=== PATIENT | female | born 1945 | race Caucasian/White ===

== ENCOUNTER → 2017-01-18 | Outpatient (CLI) | payer OTHER | END | disposition home or self-care (01) | LOC: CFH 10:26 | PROVIDERS: ATTEND Internal Medicine Nephrology | DX: I12.9 Hypertensive chronic kidney disease with stage 1 through stage 4 chronic kidney disease, or unspecified chronic kidney disease (principal); N18.3 Chronic kidney disease, stage 3 (moderate); E11.22 Type 2 diabetes mellitus with diabetic chronic kidney disease | CPT/HCPCS: 76770 ==

== ENCOUNTER → 2017-05-27 | Outpatient (CLI) | payer OTHER ==
[~2017-05-27] MED LIST: AMLO5TAB2 PO; ASPI-496 PO; ATEN1TAB3 PO; BENA40TA2 PO; CHOL10003 PO; CIDE500T PO; CYAN100072 PO; INSU100I28 INJ; MAGN250T2 PO; METF10002 PO; MULT1TAB60 PO; OMEG1CAP23 PO; PARO20TA4 PO; PRAV40TA2 PO
[2017-05-27 14:04] LABS: BLOOD UREA NITROGEN 38 mg/dL (7-18)
[2017-05-27 14:05] LABS: ASPARTATE AMINO TRANSFERASE 16 U/L (15-37)
== END | disposition home or self-care (01) ==
LOC: STAR 12:43
PROVIDERS: ATTEND Orthopaedic Surgery
DX: Z01.818 Encounter for other preprocedural examination (principal); S42.292A Other displaced fracture of upper end of left humerus, initial encounter for closed fracture; X58.XXXA Exposure to other specified factors, initial encounter; Y93.89 Activity, other specified; Y92.89 Other specified places as the place of occurrence of the external cause; Y99.8 Other external cause status
CPT/HCPCS: 36415; 80053; 93005

== ENCOUNTER 2017-05-31 09:22 | Day surgery (SDC) | payer OTHER ==
[~2017-05-31] VITALS: Ht 154.9 cm; Wt 65.8 kg
[~2017-05-31 09:22] MED LIST changes: +CLINDAMYCIN 150 MG/ML, 6ML ONE
[2017-05-31] MEDS ORDERED: ACETAMINOPHEN 325 MG TABLET PO PRN (10:00)
[2017-05-31] MEDS ORDERED: METOPROLOL 1 MG/ML, 5ML IV PRN (10:00)
[2017-05-31] MEDS ORDERED: HYDROmorphone 1 MG/ML, 1ML IV PRN (10:00)
[2017-05-31] MEDS ORDERED: OXYcodone 5 MG/5 ML ORAL.SOL UDC PO PRN (10:00)
[2017-05-31] MEDS ORDERED: PROMETHAZINE 25 MG/ML, 1ML IV PRN (10:00)
[2017-05-31] MEDS ORDERED: hydrALAzine 20 MG/ML, 1ML IV PRN (10:00)
[2017-05-31] MEDS ORDERED: LABETALOL 5MG/ML, 20ML IV PRN (10:00)
[2017-05-31] MEDS ORDERED: ALBUTEROL SULFATE 2.5 MG/3 ML NPPB PRN (10:00)
[2017-05-31] MEDS ORDERED: EPHEDRINE 50 MG/ML, 1ML IVPush PRN (10:00)
[2017-05-31] MEDS ORDERED: FENTANYL PF 100 MCG/2ML IV PRN (10:00)
[2017-05-31] MEDS ORDERED: ONDANSETRON 2MG/ML, 2ML IVPush PRN (10:00)
[2017-05-31 10:06] VITALS: BP 158/87
[2017-05-31] MEDS ORDERED: LACTATED RINGERS 1,000 ML IV SCH (10:09)
[2017-05-31] MEDS ORDERED: NEOSTIGMINE 1 MG/ML, 10ML ONE (11:08)
[2017-05-31] MEDS ORDERED: GLYCOPYRROLATE 0.2MG/1ML, 5ML ONE (11:08)
[2017-05-31] MEDS ORDERED: LIDOCAINE 4%, 4 ML SYR/CANN TP ONE (11:08)
[2017-05-31] MEDS ORDERED: [UNRECOGNIZED DRUG - OTHER] PO SCH (11:30)
[2017-05-31] MEDS ORDERED: ATENOLOL PO SCH (11:30)
[2017-05-31] MEDS ORDERED: PROPOFOL 10 MG/ML, 20ML ONE (11:58)
[2017-05-31] MEDS ORDERED: ROCURONIUM 10 MG/ML,10ML ONE ×2 (11:58)
[2017-05-31] MEDS ORDERED: CEFAZOLIN 1,000 MG ONE ×2 (11:58)
[2017-05-31] MEDS ORDERED: ONDANSETRON 2MG/ML, 2ML ONE ×2 (11:59)
[2017-05-31] MEDS ORDERED: METOCLOPRAMIDE 5 MG/ML, 2ML ONE ×2 (11:59)
[2017-05-31] MEDS ORDERED: INSULIN DETEMIR 100 UNITS/ML, PEN SQ-INSULIN SCH (21:00)
[2017-05-31] MEDS ORDERED: TEMPLATE NON-FORMULARY MED. (Metformin HCl 1,000 MG) PO SCH (21:00)
[2017-05-31] MEDS ORDERED: PRAVASTATIN 40 MG TABLET PO SCH (21:00)
[2017-05-31] MEDS ORDERED: AMLODIPINE 5 MG TABLET PO SCH (21:00)
[2017-05-31] MEDS ORDERED: TEMPLATE NON-FORMULARY MED. (Benazepril Hcl** 40 MG) PO SCH (21:00)
[2017-05-31] MEDS ORDERED: CHOLECALCIFEROL 1,000 UNIT TABLET PO SCH (21:00)
[2017-05-31] MEDS ORDERED: PAROXETINE 20 MG TABLET PO SCH (21:00)
[2017-06-01] MEDS ORDERED: ASPIRIN 81 MG TABLET EC PO SCH (09:00)
[2017-06-01] MEDS ORDERED: MULTIVITAMIN 1 TABLET PO SCH (09:00)
[2017-06-01] MEDS ORDERED: AMLODIPINE 5 MG TABLET PO SCH (09:00)
== END 2017-05-31 15:30 ==
LOC: OUT 09:22
PROVIDERS: ATTEND Orthopaedic Surgery
DX: S42.292A Other displaced fracture of upper end of left humerus, initial encounter for closed fracture (principal); E11.9 Type 2 diabetes mellitus without complications; I10 Essential (primary) hypertension; X58.XXXA Exposure to other specified factors, initial encounter; Y93.89 Activity, other specified; Y92.89 Other specified places as the place of occurrence of the external cause; Y99.8 Other external cause status; Z88.0 Allergy status to penicillin; Z88.5 Allergy status to narcotic agent
CPT/HCPCS: 24435; 73020; 76000; 82962; C1713; C1762; J0690; J2405; J2704; J2710; J2765; J7120; J3490

== ENCOUNTER → 2017-11-09 | Outpatient (CLI) | payer OTHER ==
[~2017-11-09] MED LIST changes: -CLINDAMYCIN 150 MG/ML, 6ML ONE
== END | disposition home or self-care (01) ==
LOC: STAR 09:50
PROVIDERS: ATTEND Orthopaedic Surgery
DX: Z01.818 Encounter for other preprocedural examination (principal); M25.511 Pain in right shoulder
CPT/HCPCS: 36415; 80053; 93005

== ENCOUNTER 2020-03-26 05:57 | Day surgery (SDC) | payer MEDICARE ==
[~2020-03-26] VITALS: Ht 152.4 cm; Wt 67.2 kg
[~2020-03-26 05:57] MED LIST changes: +AMLO-150 PO; -AMLO5TAB2 PO; -BENA40TA2 PO; +BENA40TA3 PO; -METF10002 PO; +METF10007 PO; +MULT-449 PO; -MULT1TAB60 PO
[2020-03-26 07:25] VITALS: BP 184/82
[2020-03-26] MEDS ORDERED: SODIUM CHLORIDE 0.9% 1,000 ML IV SCH (07:30)
[2020-03-26 08:02] LABS: INTERNATIONAL NORMALIZED RATIO 0.92 (0.93-1.1); PROTHROMBIN TIME 9.5 Seconds (9.6-11.5)
== END 2020-03-26 08:12 | disposition home or self-care (01) ==
LOC: OUT 05:57
PROVIDERS: ATTEND Internal Medicine Nephrology
DX: N17.9 Acute kidney failure, unspecified (principal); Z53.8 Procedure and treatment not carried out for other reasons; I12.0 Hypertensive chronic kidney disease with stage 5 chronic kidney disease or end stage renal disease; E11.22 Type 2 diabetes mellitus with diabetic chronic kidney disease; N18.4 Chronic kidney disease, stage 4 (severe); E78.00 Pure hypercholesterolemia, unspecified; Z79.899 Other long term (current) drug therapy; Z87.891 Personal history of nicotine dependence; Z88.0 Allergy status to penicillin; Z88.1 Allergy status to other antibiotic agents; Z79.82 Long term (current) use of aspirin; Z79.4 Long term (current) use of insulin; Z72.89 Other problems related to lifestyle; Z82.49 Family history of ischemic heart disease and other diseases of the circulatory system; Z83.3 Family history of diabetes mellitus; Z98.890 Other specified postprocedural states
CPT/HCPCS: 36415; 85610; J7030

== ENCOUNTER 2020-04-07 06:15 | Day surgery (SDC) | payer MEDICARE ==
[~2020-04-07] VITALS: Ht 152.4 cm; Wt 68.0 kg
[2020-04-07 06:51] VITALS: BP 172/77
[2020-04-07] MEDS ORDERED: SODIUM CHLORIDE 0.9% 1,000 ML IV ONE (06:51)
[2020-04-07 07:12] VITALS: BP 169/77
[2020-04-07 07:24] VITALS: BP 157/71
[2020-04-07 07:39] LABS: INTERNATIONAL NORMALIZED RATIO 0.92 (0.93-1.1); PROTHROMBIN TIME 9.8 Seconds (9.6-11.5)
[2020-04-07 08:45] VITALS: BP 145/76
[2020-04-07] MEDS ORDERED: FENTANYL PF 100 MCG/2ML ONE ×2 (09:07)
[2020-04-07] MEDS ORDERED: NALOXONE 1 MG/ML, 2ML ONE (09:07)
[2020-04-07] MEDS ORDERED: MIDAZOLAM 1 MG/ML, 5ML ONE ×2 (09:07)
[2020-04-07] MEDS ORDERED: FLUMAZENIL 0.1 MG/1 ML, 5ML ONE (09:07)
== END 2020-04-07 09:50 | disposition home or self-care (01) ==
LOC: OUT 06:15
PROVIDERS: ATTEND Internal Medicine Nephrology
DX: E11.22 Type 2 diabetes mellitus with diabetic chronic kidney disease (principal); Z53.8 Procedure and treatment not carried out for other reasons; I12.9 Hypertensive chronic kidney disease with stage 1 through stage 4 chronic kidney disease, or unspecified chronic kidney disease; N18.4 Chronic kidney disease, stage 4 (severe); E78.00 Pure hypercholesterolemia, unspecified; Z79.4 Long term (current) use of insulin; Z79.899 Other long term (current) drug therapy; Z87.891 Personal history of nicotine dependence; Z88.0 Allergy status to penicillin; Z88.5 Allergy status to narcotic agent
CPT/HCPCS: 82962; 85610; J2250; J3010; J7030; J2310

== ENCOUNTER 2020-05-12 06:06 | Day surgery (SDC) | payer MEDICARE ==
[~2020-05-12] VITALS: Ht 152.4 cm; Wt 70.0 kg
[2020-05-12 06:57] VITALS: BP 156/81
[2020-05-12] MEDS ORDERED: PLEASE ENTER HEIGHT AND WEIGHT MC SCH (07:00)
[2020-05-12] MEDS ORDERED: SODIUM CHLORIDE 0.9% 1,000 ML IV SCH (07:00)
[2020-05-12 07:49] LABS: INTERNATIONAL NORMALIZED RATIO 0.9 (0.93-1.1); PROTHROMBIN TIME 9.5 Seconds (9.6-11.5)
[2020-05-12] MEDS ORDERED: MIDAZOLAM 1 MG/ML, 5ML ONE (08:18)
[2020-05-12] MEDS ORDERED: NALOXONE 1 MG/ML, 2ML ONE (08:18)
[2020-05-12] MEDS ORDERED: FLUMAZENIL 0.1 MG/1 ML, 5ML ONE (08:18)
[2020-05-12] MEDS ORDERED: FENTANYL PF 100 MCG/2ML ONE (08:18)
== END 2020-05-12 10:30 | disposition home or self-care (01) ==
LOC: OUT 06:06
PROVIDERS: ATTEND Internal Medicine Nephrology
DX: N17.9 Acute kidney failure, unspecified (principal); I12.9 Hypertensive chronic kidney disease with stage 1 through stage 4 chronic kidney disease, or unspecified chronic kidney disease; E11.22 Type 2 diabetes mellitus with diabetic chronic kidney disease; N18.4 Chronic kidney disease, stage 4 (severe); E78.00 Pure hypercholesterolemia, unspecified; Z88.0 Allergy status to penicillin; Z88.5 Allergy status to narcotic agent; Z88.8 Allergy status to other drugs, medicaments and biological substances; Z98.890 Other specified postprocedural states; Z79.82 Long term (current) use of aspirin; Z79.899 Other long term (current) drug therapy; Z87.891 Personal history of nicotine dependence; Z72.89 Other problems related to lifestyle; Z82.49 Family history of ischemic heart disease and other diseases of the circulatory system; Z79.4 Long term (current) use of insulin
CPT/HCPCS: 36415; 50200; 77012; 85610; 88300; 99156; 99157; J2250; J3010; J7030; J2310